=== PATIENT | male | born 1965 | race Caucasian/White ===

== ENCOUNTER 2018-03-17 12:48 | Emergency (ER) | payer OTHER, SELFPAY ==
[2018-03-17 12:49] VITALS: BP 117/73; PULSE 12; RESP 16; O2SAT 97
[2018-03-17 12:50] VITALS: BP 117/73; PULSE 81; RESP 11; TEMP 36.6; O2SAT 100; BMI 30.6
--- NOTE | 2018-03-17 13:03 | ED.VISSUMM ---
- ER Visit Summary Date of Service: 03/17/18 Chief Complaint: Multiple bee stings History of Present Illness: The patient is a 53 M who got stung multiple times at his house. They stung on the left ankle and left calf. He called EMS because he has an allergy to bees but he does not have an EpiPen at home. He took 50 mg of oral Benadryl. EMS arrived and administered a milligrams of IV Benadryl and gave 0.5 mg of epinephrine intramuscularly. Currently the patient has no complaints except for dry mouth. He has noted shortness of breath. Does not feel like his tongue is swollen. Physical Examination: Vital signs reviewed. HEENT exam unremarkable. No tongue swelling. No uvular swelling. Heart is regular rate and rhythm without murmurs. Lungs are clear to auscultation. Abdomen is soft and nontender. Extremities reveal no edema. Skin exam localized reaction to bee sting of the left ankle and calf.. Neurologic exam normal. Test Results: None performed Emergency Department Course and Treatment: Patient was observed the emergency department. He had no return of any symptoms. He will be discharged with an EpiPen Treatment Plan: [] Disposition: Discharge Impression: Bee sting reaction This note was generated with [employer] dictation software. It may contain incorrect words, spelling, and punctuation that were not noted in review of the chart prior to signing ED Disposition - Plan for ED Patient: Chief Complaint: Allergic Reaction Referrals: Federico Vyas MD [Primary Care Provider] -
[2018-03-17 13:29] VITALS: BP 137/84; PULSE 93; RESP 22; O2SAT 97
[2018-03-17 14:05] VITALS: BP 141/86; PULSE 94; RESP 16; O2SAT 96
--- NOTE | 2018-03-17 14:14 | ED.DEP ---
ED Disposition - Plan for ED Patient: Disposition: Home or Assisted Living Chief Complaint: Allergic Reaction Instructions: ED Bite Sting Insect Gen Allergic React Prescriptions: Epinephrine [Epi Pen] 0.3 mg IM X1 #2 syringe Referrals: Federico Vyas MD [Primary Care Provider] -
[2018-03-17 14:21] VITALS: BP 143/93; PULSE 91; RESP 23; O2SAT 97
--- NOTE | 2018-03-17 14:22 | ED.RN ---
USE OF EPI-PEN DISCUSSED AND DEMONSTRATED BY Val BRYANT
== END 2018-03-17 14:34 | disposition home or self-care (01) ==
LOC: ED 14:27
PROVIDERS: Emergency Provider Emergency Medicine; Family Provider Internal Medicine; PCP Internal Medicine
DX: T63.441A Toxic effect of venom of bees, accidental (unintentional), initial encounter (principal); R06.02 Shortness of breath; R68.2 Dry mouth, unspecified; Y92.9 Unspecified place or not applicable; G47.419 Narcolepsy without cataplexy; Z91.030 Bee allergy status; Z79.899 Other long term (current) drug therapy
CPT/HCPCS: 99284; J7030

== ENCOUNTER 2024-08-28 14:44 | Emergency (ER) | payer OTHER, SELFPAY ==
[2024-08-28 14:44] VITALS: BP 159/97; PULSE 103; RESP 20; TEMP 36.5; O2SAT 99
== END 2024-08-28 15:49 | disposition left against medical advice (07) ==
LOC: ED 15:48
PROVIDERS: PCP Internal Medicine
DX: Z53.21 Procedure and treatment not carried out due to patient leaving prior to being seen by health care provider (principal)

== ENCOUNTER → 2025-07-02 | Outpatient (CLI) | payer SELFPAY ==
[2025-07-02 10:14] LABS: Hematocrit 39.8 % (40-54); Hemoglobin 13.8 g/dL (13.0-16.5); Mean Corp Hgb Conc 34.7 g/dL (32-36); Mean Corpuscular Volume 90.0 fL (80-94); Mean Platelet Vol. 9.9 fl (6.2-12.0); Platelet Count 239 K/mm3 (150-450); RBC Distribution Width CV 12.0 % (11.6-14.6); RBC Distribution Width SD 39.7 fl (35.1-43.9); Red Blood Count 4.42 M/mm3 (4.6-6.2); White Blood Count 4.9 K/mm3 (4.4-11.0)
[2025-07-02 10:57] LABS: AST(SGOT) 32 U/L (<=37); Alanine Aminotransfer ALT/SGPT 58 U/L (<=46); Albumin, Serum 4.3 g/dL (3.5-5.0); Alkaline Phosphatase 95 U/L (40-129); Anion Gap 13 (5-15); BUN 20 mg/dL (4-19); BUN/Creat Ratio 11.9 RATIO (10-20); Calcium,Total 9.3 mg/dL (7.6-11.0); Carbon Dioxide 25.0 mmol/L (21.0-32.0); Chloride 101 mmol/L (98-108); Globulin 2.5 g/dL (2.2-4.2); Glucose 108 mg/dL (70-99); PSA,Total - Annual Screen 0.84 ng/mL (0.02-4.00); Potassium 4.6 mmol/L (3.3-5.1); Vitamin D,25 Hydroxy 32.4 ng/mL (30-100)
== END | disposition home or self-care (01) ==
PROVIDERS: PCP Family Medicine; Referring Provider Family Medicine; Visit Provider Family Medicine
DX: Z12.5 Encounter for screening for malignant neoplasm of prostate (principal); C64.2 Malignant neoplasm of left kidney, except renal pelvis
CPT/HCPCS: 36415; 80053; 82306; 84153; 85027; G0103

== ENCOUNTER → 2025-07-24 | Outpatient (CLI) | payer OTHER, SELFPAY ==
--- NOTE | 2025-07-24 17:30 | CT_ITS ---
PROCEDURE: CHEST WITH CONTRAST 07/24/2025 REASON FOR EXAM: HX OF RENAL CANCER Prior left nephrectomy. TECHNIQUE: Procedure Code: CTCHW Modality: CT Procedure: CHEST WITH CONTRAST Coronal and Sagittal reconstruction series were provided. CONTRAST: Isovue-300 VOLUME: 100 mL One or more dose reduction techniques were used (e.g., Automated exposure control, adjustment of the mA and/or kV according to patient size, use of iterative reconstruction technique). RADIATION DOSE SUMMARY: CTDlvol: 23.48 mGy DLP: 1362.50 mGycm COMPARISON: None FINDINGS: Hardware: None Lymph nodes: Small benign-appearing bilateral axillary lymph nodes. Small mediastinal lymph nodes. No hilar lymph nodes. Heart and Vasculature: The heart is nonenlarged. No significant coronary artery calcification. Lungs and Airways: Minimal degree of increased linear markings in the medial superior segment of the right lower lobe. No pulmonary infiltration or mass lesion is seen. Pleura: No pleural effusion. Upper Abdomen: Unremarkable Bones: Degenerative changes of the thoracic spine. CT/Chest WITH Contrast IMPRESSION: Coronary artery calcification (CAC) is is absent No evidence of metastatic disease. Mild scarring in the superior medial aspect of the right lower lobe. Reading Location: [facility]
--- NOTE | 2025-07-24 17:30 | CT_ITS ---
PROCEDURE: CT ABD/PELVIS W/WO CONTRAST 07/24/2025 REASON FOR EXAM: HX RCC. NEEDS [address] FU TECHNIQUE: Procedure Code: [id number] Modality: CT Procedure: CT ABD/PELVIS W/WO CONTRAST CT abdomen and pelvis was performed with and without IV contrast. Multiplanar reformats were generated. CONTRAST: Isovue-300 VOLUME: 95 mL One or more dose reduction techniques were used (e.g., Automated exposure control, adjustment of the mA and/or kV according to patient size, use of iterative reconstruction technique. RADIATION DOSE SUMMARY: CTDlvol: 23.23+ 11.4+ 18.41+ 23.48+ 23.43+ 23.65 mGy DLP: 6092.49 mGycm COMPARISON: None. FINDINGS: Exam limited by streak artifact related to lumbar spinal fusion hardware. Lung bases: Refer to concurrent separately dictated CT chest for intrathoracic findings. Liver: Unremarkable. Spleen: Unremarkable. Gallbladder/biliary: Unremarkable. Pancreas: Unremarkable. Adrenals: Likely LEFT adrenalectomy.. Kidneys: LEFT nephrectomy with minimal presumed scarring and trace fluid in the operative bed most notable along the medial spleen. Bowel: Diverticulosis. Normal caliber appendix. Lymph nodes: Prominent but technically nonenlarged LEFT upper quadrant mesenteric node, 8 mm short axis with trace to mild nonspecific mesenteric stranding. Possible LEFT periaortic kristie dissection. Nonenlarged retroperitoneal nodes. Vasculature: Mild atherosclerosis.. Peritoneum: Unremarkable. Bladder: Unremarkable. Reproductive Organs: Trace RIGHT hydrocele suspected. Body Wall: Operative changes of the LEFT flank/chest wall including resection of a rib. Tiny fat containing umbilical hernia. Small fat containing LEFT inguinal hernia. Bones: As above. LEFT lateral lumbar spinal fusion. Degenerative findings. CT/CT Abd/Pelvis W/WO Contrast IMPRESSION: 1. Operative findings with presumed scarring and trace fluid within the operati ve bed. No definite recurrent/residual or metastatic disease within the abdomen/pelvis. 2. Additional description as above. Reading Location: [facility]
== END | disposition home or self-care (01) ==
LOC: CT 17:17
PROVIDERS: PCP Family Medicine; Referring Provider Family Medicine; Visit Provider Family Medicine
DX: C64.2 Malignant neoplasm of left kidney, except renal pelvis (principal)
CPT/HCPCS: 71260; 74178; Q9967